=== PATIENT | male | born 1980 | race Two or more races ===

== ENCOUNTER 2024-02-09 08:50 | Outpatient (RCR) | payer MEDICAID, SELFPAY ==
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
== END 2024-02-23 23:59 | disposition home or self-care (01) ==
LOC: CPTX 08:50
PROVIDERS: PCP Family Medicine; Referring Provider Family Medicine; Visit Provider Family Medicine
DX: M54.9 Dorsalgia, unspecified (principal); M79.606 Pain in leg, unspecified; R26.2 Difficulty in walking, not elsewhere classified; G89.29 Other chronic pain
CPT/HCPCS: 97162

== ENCOUNTER 2024-02-13 22:39 | Emergency (ER) | payer MEDICAID, SELFPAY ==
[2024-02-13 22:39] VITALS: BMI 34.7
[2024-02-13 23:29] VITALS: BP 132/89; PULSE 99; RESP 18; TEMP 37; O2SAT 98
--- NOTE | 2024-02-13 23:36 | XR_ITS ---
Examination: PA chest single view Technique: Upright PA chest single view Exam date and time: February 13, 2024 1139 hrs. Comparison June 02, 2017 Indications: Coughing 3 days. Findings: Suspicious for early bilateral perihilar pneumonia Mild prominence left ventricle Old fracture left clavicle Suspicious for 15 mm cavitary lesion left upper lobe Impression: Suspicious for early bilateral perihilar pneumonia Recommend AP lordotic chest follow-up to exclude small cavitary lesion left upper lobe
--- NOTE | 2024-02-13 23:39 | EDNOTE_ITS ---
Upper Respiratory Inf. RME/HPI General Chief Complaint: Flu Like Symptoms Stated Complaint: COUGHING X 3 DAYS Time Seen by Provider: 02/13/24 23:30 Arrival date/time: 02/13/24 22:39 43M with no significant PMH presents to ED with 3 days of cough and some rib pain with coughing. Limitations: no limitations Related Data Previous Rx's ?Medication ?Instructions ?Recorded ibuprofen 600 mg tablet 600 mg PO Q6H PRN pain #30 tabs 03/23/23 amoxicillin 500 mg tablet 1,000 mg (2 x 500 mg) PO TID 5 02/14/24 days #30 tabs azithromycin 250 mg tablet See Rx Instructions PO .COMPLEX #6 02/14/24 tabs Allergies Allergy/AdvReac Type Severity Reaction Status Date / Time No Known Allergies Allergy Verified 02/13/24 22:41 Review of Systems Review of Systems Systems Reviewed: All systems reviewed, normal except as documented Constitutional Constitutional: Reports system reviewed and no additional complaints, except as documented, Denies fever(s) and Denies headache(s) ENT Ears, Nose, Mouth, and Throat: Denies disequilibrium and Denies headache(s) Cardiovascular Cardiovascular: Reports system reviewed and no additional complaints, except as documented, Reports as per HPI, Reports chest pain (rib) and Denies dyspnea Respiratory Respiratory: Reports system reviewed and no additional complaints, except as documented, Reports as per HPI, Reports cough and Denies dyspnea Gastrointestinal Gastrointestinal: Reports system reviewed and no additional complaints, except as documented, Denies abdominal pain, Denies nausea and Denies vomiting Neurologic Neurologic: Reports system reviewed and no additional complaints, except as documented, Denies confusion, Denies disequilibrium and Denies headache(s) Psychiatric Psychiatric: Denies confusion Past Medical History Past Medical History CARDIAC: Negative Cardiac Disorders or Congestive Heart Failure RESPIRATORY: Negative Chronic Obstructive Pulmonary Disease (COPD) or Asthma GENITOURINARY: Negative Renal Disease ENDOCRINE: Negative Diabetes Mellitus Type 1 or Diabetes Mellitus Type 2 HEMATOLOGIC: Negative Sickle Cell Disease Social History SMOKING STATUS: Current some day smoker SUBSTANCE USE: former substance user (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) ED Exam General Limitations: Present no limitations General appearance: Present alert and in no apparent distress Head Head exam: Present atraumatic Eye Eye exam: Present normal appearance, PERRL and EOMI ENT ENT exam: Present normal exam, normal oropharynx and mucous membranes moist Neck Neck exam: Present normal inspection, full ROM and trachea midline Chest Chest inspection: Present normal inspection and symmetric chest wall rise Respiratory Respiratory exam: Present normal lung sounds bilaterally Cardiovascular Cardiovascular exam: Present regular rate, normal rhythm and normal heart sounds Abdominal Exam Abdominal exam: Present soft and normal bowel sounds Extremities Exam Extremities exam: Present normal inspection and full ROM Back Exam Back exam: Present normal inspection and full ROM Neurological Exam Neurological exam: Present alert, oriented X3 and CN II-XII intact Psychiatric Psychiatric exam: Present normal affect and normal mood Skin Skin exam: Present warm, dry, intact and normal color Course Quality Measures none Orders Category Date Time Status Bedside Influenza A&B Antigen Test NOW Care 02/13/24 22:44 Completed XR chest 1V portable Stat Exams 02/13/24 23:36 Completed CBC Stat Lab 02/14/24 00:18 Completed CMP [Comprehensive Metabolic Panel] Stat Lab 02/14/24 00:18 Completed Cocci Serology IgM with reflex to IgG [Cocci Serology, Lab 02/14/24 00:18 Received Unk History] Stat Troponin I Stat Lab 02/14/24 00:18 Completed Vital Signs Vital signs: Vital Signs Temperature 98.6 F 02/13/24 23:29 Pulse Rate 99 02/13/24 23:29 Respiratory Rate 18 02/13/24 23:29 Blood Pressure 132/89 H 02/13/24 23:29 Pulse Oximetry (%) 98 02/13/24 23:29 Oxygen Delivery Method Room Air 02/13/24 23:29 O2 at 98% on RA and WNLs Upper Respiratory Infection MDM Narrative MDM Narrative:: 43M with no significant PMH presents to ED with 3 days of cough and some rib pain with coughing. Physical exam reveals red oropharynx, but otherwise clear ENT and lungs. Patient is afebrile, calm, and alert. CXR PNA with possible L cavitary lesion. N leukocytosis. CMP unremarkable. Trop normal. Cocci pending. Will treat as bacterial until results come back. Patient data External records reviewed:: [facility] previous records Clinical information provided by:: patient Social determinants that could affect healthcare access:: none Patient has the following chronic illnesses:: none How is presenting disease/condition affected by chronic disease/condition?: no chronic disease Evaluation data The following diagnostics were reviewed and interpreted by me:: lab results and radiology exam(s) Lab and/or radiology exams considered but not ordered:: ordered Interpretation Summary: above Medications / Prescriptions Medications or Prescriptions considered but not ordered:: not ordered Medication administrations:: n/a Consultations Consultation(s) initiated? (list below): No Diagnosis Upper Respiratory Differential Diagnosis: upper respiratory infection, croup, otitis media, sinusitis, viral infection, bronchitis, influenza, pharyngitis and other (CAP, [place] Fever) Most likely diagnosis given after review of the tests above:: CAP Admission Indicated Admission indicated?: not indicated Admission Request Was there a request for admission?: No Disposition Plan Disposition Plan: Discharge Discharge Attestation Discharge Attestation: The patient and all family members were given an opportunity to ask questions and understood the discharge instructions. Discharge instructions specifically effects, indications for sooner follow up or return to the emergency department, and the expected course of current diagnosis. Patient condition: Stable Discharge Plan Plan Patient Disposition: HOME (Self Care) Disposition Comment: Stable Prescriptions/Referrals Prescriptions/Med Rec: New amoxicillin 500 mg tablet 1,000 mg PO TID 5 Days Qty: 30 0RF azithromycin 250 mg tablet See Rx Instructions .ROUTE .COMPLEX Qty: 6 0RF Rx Instructions: For 250 mg dose pack: take 500 mg today (day 1), then 250 mg for 4 days (days 2-5) No Action ibuprofen 600 mg tablet 600 mg PO Q6H PRN (Reason: pain) Qty: 30 0RF Referrals: Librado Montgomery MD [Primary Care Provider] - In 1 week Problem List Clinical Impression: CAP (community acquired pneumonia) Patient/Caregiver Discharge Instructions Education Materials: ED Pneumonia (Adult) Additional Instructions: Please follow-up with PCP within 24-48 hours and return immediately if symptoms worsen. Print Language: Sami Stand Alone Forms: Patient Portal Info Letter SCOOTER/FLYNN Supervising Physician SCOOTER/FLYNN Supervising Physician: Dr. Lo
[2024-02-14 00:55] LABS: Basophils # (Auto) 0.1 Thou/mm3 (0.0-0.2); Basophils % (Auto) 1 % (0-2.5); Eosinophils # (Auto) 0.1 Thou/mm3 (0.0-0.5); Eosinophils % (Auto) 2 % (0-10); Hematocrit 40.6 % (41.0-53.0); Hemoglobin 13.3 g/dL (13.5-16.0); Immature Granulocytes % (Auto) 1 % (0-0); Immature Granulocytes Auto 0.04 Thou/mm3 (0.00-0.00); Lymphocytes # (Auto) 1.3 Thou/mm3 (1.0-4.8); Lymphocytes % (Auto) 20 % (10-50); Mean Corpuscular HGB Conc 32.8 g/dl (31.0-37.0); Mean Corpuscular Hemoglobin 31.2 pg (25.0-35.0); Mean Corpuscular Volume 95 fL (80-100); Monocytes # (Auto) 1.4 Thou/mm3 (0.0-0.8); Monocytes % (Auto) 21 % (0-12); Neutrophils # (Auto) 3.8 Thou/mm3 (1.8-7.7); Neutrophils % (Auto) 56 % (37-80); Nucleated Red Blood Cell % 0 /100 WBC (0); Platelet Count 197 Thou/mm3 (140-440); RDW Standard Deviation 46.3 fL (35.1-43.9); Red Blood Count 4.26 Miln/mm3 (4.50-5.90); White Blood Count 6.7 Thou/mm3 (3.8-10.6)
[2024-02-14 01:14] LABS: Alanine Aminotransferase 38 U/L (10-49); Albumin, Serum 4.5 gm/dL (3.5-5.0); Albumin/Globulin Ratio 1.9 (1.2-2.2); Alkaline Phosphatase 115 U/L (46-116); Anion Gap 6 (7-16); Aspartate Amino Transferase 27 U/L (0-34); BUN/Creatinine Ratio 17 Ratio (12-20); Bilirubin,Total 0.3 mg/dL (0.3-1.2); Blood Urea Nitrogen 15 mg/dL (9-23); Calcium 9.2 mg/dL (8.3-10.6); Calcium (Corrected) 9.2 mg/dL (8.5-10.1); Chloride 107 mMol/L (98-107); Creatinine (Component) 0.9 mg/dL (0.6-1.3); Estimated Creatinine Clearance 147.2 mL/min (>60); Globulin 2.4 gm/dL (2.3-3.5); Glucose 101 mg/dL (74-106); Osmolality,Calculated 278 (275-295); Potassium 4.4 mMol/L (3.4-5.1); Sodium 139 mMol/L (136-145); Total Protein 6.9 gm/dL (5.7-8.2); Troponin I < 0.002 ng/mL (0.0-0.045); eGFR > 60 See Note
[2024-02-14 14:35] LABS: Cocci Serology, IgM Negative (Negative)
[2024-02-15 14:31] LABS: Cocci Serology, IgG Negative (Negative)
== END 2024-02-14 01:25 | disposition home or self-care (01) ==
PROVIDERS: Physician Assistant; Emergency Provider Emergency Medicine; PCP Family Medicine
DX: J18.9 Pneumonia, unspecified organism (principal); F17.210 Nicotine dependence, cigarettes, uncomplicated
CPT/HCPCS: 36415; 71045; 80053; 84484; 85025; 86331; 86635; 87400; 87651; 87811; 99283

== ENCOUNTER 2024-03-21 14:30 | Outpatient (RCR) | payer MEDICAID, SELFPAY ==
--- NOTE | 2024-03-14 15:51 | PT.ODAYNRPT ---
PT Outpatient Daily Note OP Daily Note Outpatient Physical Therapy Treatment Date: 03/14/24 Visit Reasons: low back pain Subjective: Pt's back been hurting and stiff lately. Objective: Please see flow chart for list of ther ex performed Assessment: reports of pain with all exercises; supine heat helped patient tolerate exercises Plan: Continue with PT Length of Time (minutes) of Treatment: 30 Minutes Procedure Charges Therapeutic Exercise 30 minutes: Yes
--- NOTE | 2024-03-18 13:36 | PT.ODAYNRPT ---
PT Outpatient Daily Note OP Daily Note Outpatient Physical Therapy Treatment Date: 03/18/24 Visit Reasons: low back pain Subjective: Pt reports LBP continues to be present, c/o moderate pain today. As per pt he is using his treadmill at home to walk. Objective: Please see flow sheet for ther ex list. Assessment: Interventions completed alternating supine and standing to maximize pt participation. Plan: Continue with pOC. Length of Time (minutes) of Treatment: 30 Minutes Procedure Charges Therapeutic Exercise 30 minutes: Yes
--- NOTE | 2024-03-21 15:20 | PT.ODAYNRPT ---
PT Outpatient Daily Note OP Daily Note Outpatient Physical Therapy Treatment Date: 03/21/24 Visit Reasons: low back pain Subjective: Pt's back is hurting more since last session. Pt mentioned anything twisting seems to irritate the back. Objective: Please see flow chart for list of ther ex perfromed Assessment: tolerate today's session. All exercises performed in supine with heat today Plan: Continue with PT Length of Time (minutes) of Treatment: 30 Minutes Procedure Charges Therapeutic Exercise 30 minutes: Yes
== END 2024-03-25 23:59 | disposition home or self-care (01) ==
LOC: CPTX 14:30
PROVIDERS: PCP Family Medicine; Referring Provider Family Medicine; Visit Provider Family Medicine
DX: M54.50 Low back pain, unspecified (principal); G89.29 Other chronic pain; R26.2 Difficulty in walking, not elsewhere classified
CPT/HCPCS: 97110

== ENCOUNTER 2024-04-06 14:15 | Outpatient (RCR) | payer MEDICAID, SELFPAY ==
--- NOTE | 2024-04-06 14:33 | PT.ODAYNRPT ---
PT Outpatient Daily Note OP Daily Note Outpatient Physical Therapy Treatment Date: 04/06/24 Visit Reasons: low back pain Subjective: Pt c/o moderate to high LBP. Pt shared that the days he comes into PT he is in a lot of pain in the evening. Objective: Please see flow sheet for ther ex list. Assessment: Pt demonstrates poor activity tolerance due to pain response. Pt instructed on light ther ex, pt grunts and groans in pain when performing interventions. Plan: Continue with POC. Length of Time (minutes) of Treatment: 30 Minutes Procedure Charges Therapeutic Exercise 30 minutes: Yes
== END 2024-04-22 23:59 | disposition home or self-care (01) ==
LOC: CPTX 14:15
PROVIDERS: PCP Family Medicine; Referring Provider Family Medicine; Visit Provider Family Medicine
DX: M54.50 Low back pain, unspecified (principal); M79.606 Pain in leg, unspecified; R26.2 Difficulty in walking, not elsewhere classified; G89.29 Other chronic pain
CPT/HCPCS: 97110

== ENCOUNTER 2024-04-23 19:15 | Emergency (ER) | payer MEDICAID, SELFPAY ==
[2024-04-23 19:15] VITALS: BMI 33.3
[2024-04-23 19:40] VITALS: BP 163/124; BP 165/108; TEMP 36.5; BMI 33.6
--- NOTE | 2024-04-23 20:29 | XR_ITS ---
Examination: PA lateral chest 2 views Technique: Upright PA lateral chest 2 views Exam date and time: April 23, 20242030 hrs. Comparison February 13, 2024 Indications: Chest pain shortness of breath beginning 3 days ago Findings: Mild enlargement cardiac contour Apparent scarring in the lingular segment No lobar pneumonia No pulmonary edema Old healed left clavicle fracture Impression: No pneumonia or pulmonary edema Multiple old healed left rib fractures
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
[2024-04-23] MEDS: KETOROLAC INJ 60 MG/2 ML VIAL 30 MG IM (21:04)
[2024-04-23 21:27] VITALS: BP 146/100; BP 164/117
== END 2024-04-23 22:14 | disposition home or self-care (01) ==
PROVIDERS: Emergency Provider Emergency Medicine; PCP Family Medicine
DX: R07.81 Pleurodynia (principal); R03.0 Elevated blood-pressure reading, without diagnosis of hypertension; R06.02 Shortness of breath; R07.9 Chest pain, unspecified
CPT/HCPCS: 71046; 96372; 99283; J1885

== ENCOUNTER 2024-05-04 12:30 | Emergency (ER) | payer MEDICAID, SELFPAY ==
[2024-05-04 13:21] VITALS: BP 174/57; PULSE 106; RESP 20; TEMP 36.8; O2SAT 95
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
[2024-05-04] MEDS: IBUPROFEN TAB 400 MG TABLET 800 MG PO (14:25)
[2024-05-04 14:28] VITALS: BP 147/106; PULSE 98
[2024-05-04] MEDS: HYDROcodone/APAP 5/325 TABLET 2 TAB PO (15:15)
== END 2024-05-04 15:24 | disposition home or self-care (01) ==
PROVIDERS: Emergency Provider Emergency Medicine; PCP Family Medicine
DX: S09.90XA Unspecified injury of head, initial encounter (principal); S19.9XXA Unspecified injury of neck, initial encounter; S90.02XA Contusion of left ankle, initial encounter; J01.00 Acute maxillary sinusitis, unspecified; Y04.8XXA Assault by other bodily force, initial encounter
CPT/HCPCS: 70450; 72125; 73610; 99284; A9270

== ENCOUNTER 2024-05-09 11:15 | Outpatient (RCR) | payer MEDICAID, SELFPAY ==
--- NOTE | 2024-05-09 12:09 | PT.ODAYNRPT ---
PT Outpatient Daily Note OP Daily Note Outpatient Physical Therapy Treatment Date: 05/09/24 Visit Reasons: LOW BACK PAIN Subjective: Pt's been lazy and mentioned his pain is chronic . Pt will like to continue physical therapy as much as he can. Objective: Please see flow chart for list of ther ex performed Assessment: tolerate exercises performed; minimal increase in pain post PT session Plan: Continue with PT Length of Time (minutes) of Treatment: 30 Minutes Procedure Charges Therapeutic Exercise 30 minutes: Yes
--- NOTE | 2024-05-25 16:02 | PT.ODS1RPT ---
PT OP Progress/Discharge Note Date of Service: 05/25/24 Progress Note/DC Note Progress Note/Discharge Note: DC Note Patient Information Visit Reasons: LOW BACK PAIN Service Discharge Date: 05/25/24 Status Assessment: Pt has been seen for 6 visits (eval + 5 visits) inconsistently. Pt last treated on 05/09/24. Pt no showed 3 appts (03/08, 04/28, and 05/16/24. At this time Pt will be d/c from care due to non-compliance per attendance policy. Pt did not meet set goals in therapy; thank you for your referrals.
== END 2024-05-23 23:59 | disposition home or self-care (01) ==
LOC: CPTX 11:15
PROVIDERS: PCP Family Medicine; Referring Provider Family Medicine; Visit Provider Family Medicine
DX: M54.50 Low back pain, unspecified (principal); M79.606 Pain in leg, unspecified; G89.29 Other chronic pain
CPT/HCPCS: 97110